=== PATIENT | female | born 1970 | race Caucasian/White ===

== ENCOUNTER 2017-09-16 18:32 | Emergency (ER) | payer MEDICAID, OTHER ==
[~2017-09-16] VITALS: Ht 152.4 cm; Wt 72.7 kg
[~2017-09-16 18:32] MED LIST: LORA10TA7 PO
[2017-09-16] MEDS ORDERED: IBUPROFEN 800 MG TABLET PO ONE (20:15)
[2017-09-16] MEDS ORDERED: OxyCODONE HCL/ACETAMINOPHEN 5-325 MG TABLET PO ONE (20:15)
[2017-09-16 21:01] VITALS: BP 130/63
== END 2017-09-16 22:04 | disposition home or self-care (01) ==
LOC: EMS 18:32
DX: S93.601A Unspecified sprain of right foot, initial encounter (principal); S13.4XXA Sprain of ligaments of cervical spine, initial encounter; F17.210 Nicotine dependence, cigarettes, uncomplicated; Z88.6 Allergy status to analgesic agent; Z88.0 Allergy status to penicillin; W01.0XXA Fall on same level from slipping, tripping and stumbling without subsequent striking against object, initial encounter; Y93.89 Activity, other specified; Y92.89 Other specified places as the place of occurrence of the external cause; Y99.8 Other external cause status
CPT/HCPCS: 99284